=== PATIENT | female | born 1985 | race Caucasian/White ===

== ENCOUNTER 2017-05-24 19:05 | Emergency (ER) | payer OTHER ==
[~2017-05-24] VITALS: Ht 157.5 cm; Wt 47.6 kg
[~2017-05-24 19:05] MED LIST: ADVIL200 M2; ALEVE220 M1; AMOXICILLIN125 MG PO; AMOXIL500 M1 PO; ANEXSIA 5/325 M1 TA1 PO; ANTIVERT PO; ATARAX PO; ATIVAN0.5 M1 PO; AUGMENTIN400 MG DOB; BACTRIM DS TABL1 TA1 PO; BENADRYL25 M1 PO; BIRTH CONTROL PILL PO; CELEXA; CELEXA PO; FAMOTIDINE PO; FIORICET1 TAB PO; FLEXERIL PO; FLEXERIL10 MG PO; GUAIFENESIN400 M1 PO; HYDROCORTISONE30 G2 EXT; HYDROXYZINE HCL25 M1 PO; IBUPROFEN; IRON1 TA1 PO; IRON325 ( 651 PO; LIDOCAINE HC20 MG/M1 MM; LORTAB 5/500 TA1 TA1 PO; METRONIDAZOLE PO; NAPROSYN500 MG PO; NAPROXEN PO; NO MEDICATIONS; NORCO1 TAB 10/3 PO; PEN-VEE K PO; PEPCID PO; PHENERGAN25 MG PO; PREDNISONE; PREDNISONE PO; PREDNISONE10 MG PO; PYRIDIUM100 MG PO; ROBAXIN500 MG PO; SUDAFED30 M1 PO; ULTRACET TABLET1 TAB PO; ULTRAM PO; VOLTAREN75 MG PO; ZOFRAN ODT4 MG/UDTAB PO; ZYRTEC10 M2 PO
[2017-05-24] MEDS ORDERED: NO MEDICATIONS (19:37)
== END 2017-05-24 22:21 | disposition home or self-care (01) ==
LOC: SED 19:05
DX: B35.4 Tinea corporis (principal); F17.210 Nicotine dependence, cigarettes, uncomplicated; Z98.51 Tubal ligation status; Z88.5 Allergy status to narcotic agent
CPT/HCPCS: 99282

== ENCOUNTER 2017-06-16 09:13 | Emergency (ER) | payer SELFPAY ==
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
[2017-06-16] MEDS ORDERED: METHOCARBAMOL PO (09:21)
[2017-06-16] MEDS ORDERED: METHYLPREDNISOLONE PO (09:22)
[2017-06-16] MEDS ORDERED: TRAMADOL PO (09:22)
[2017-06-16] MEDS ORDERED: IBUPROFEN PO (09:22)
[2017-06-16] MEDS ORDERED: HYDROXYZINE PO (09:23)
== END 2017-06-16 10:59 | disposition home or self-care (01) ==
LOC: SED 09:13
DX: S23.41XA Sprain of ribs, initial encounter (principal); F17.210 Nicotine dependence, cigarettes, uncomplicated; V49.00XA Driver injured in collision with unspecified motor vehicles in nontraffic accident, initial encounter; Y92.410 Unspecified street and highway as the place of occurrence of the external cause; Z88.8 Allergy status to other drugs, medicaments and biological substances
CPT/HCPCS: 71020; 99283

== ENCOUNTER 2017-06-26 18:49 | Emergency (ER) | payer OTHER ==
--- NOTE | ~2017-06-26 | EKG ---
PATIENT: ERNIE WESTBROOK UNIT #: [id number] Ventricular Rate: 80 BPM Atrial Rate: 80 BPM P-R Interval: 150 ms QRS Duration: 82 ms Q-T Interval: 378 ms QTC Calculation(Bezet): 435 ms P Smiley: 64 degrees Calculated R Smiley: 34 degrees Calculated T Smiley: 52 degrees Diagnosis Line: Normal sinus rhythm Diagnosis Line: Possible Left atrial enlargement Diagnosis Line: Borderline ECG Diagnosis Line: No previous ECGs available Diagnosis Line: Confirmed by MIGUEL ANGEL PANDEY MD ([id number]) on Diagnosis Line: 06/30/2017 10:40:50 AM INTERPRETING MD: KATHERIN BARRETT
--- NOTE | ~2017-06-26 | CR63 ---
[facility]. [facility] A Service of [facility] RADIOLOGY TEXT RESULTS PATIENT: ERNIE WESTBROOK LOCATION: SED : 87 UNIT #: [id number] AGE: [address]: Steve Frank MD SEX: F ORDER DR: [id number] [place] [id number] E MR#: [id number] Acc #: [id number] NAME: ERNIE WESTBROOK : 1985 SEX: F STUDY DATE/TIME: 06/26/2017 19:45 UNIT: SED ROOM: STUDY DESCRIPTION: CR Chest 2 View Attending Physician: Steve Frank M.D. Ordering Physician: Steve Frank M.D. Primary Care Physician: Sarah Floyd Aprn MEDICAL IMAGING REPORT This report is preliminary unless electronic signature is present. EXAM Two views of the chest. COMPARISON 06/16/2017, November 17, 2014 INDICATION 32-year-old female with pleuritic chest pain and dyspnea for 2 weeks. FINDINGS Cardiomediastinal silhouette is within normal limits. No evidence of pleural effusion, focal airspace disease, or pneumothorax. IMPRESSION Normal exam. Dictated by... Thom Valentino M.D. THIS IS AN ELECTRONICALLY VERIFIED REPORT Thom Valentino M.D. at 07/02/2017 9:15 PM LYDIA/tori TD: 06/27/2017 01:24 JOB #: [id number] MEDICAL IMAGING REPORT Page 1 of 1
[~2017-06-26 18:49] MED LIST changes: +HYDROXYZINE PO; +IBUPROFEN PO; +METHOCARBAMOL PO; +METHYLPREDNISOLONE PO; +TRAMADOL PO
== END 2017-06-26 20:48 | disposition home or self-care (01) ==
LOC: SED 18:49
DX: R07.89 Other chest pain (principal); F17.200 Nicotine dependence, unspecified, uncomplicated; Z88.5 Allergy status to narcotic agent; Z79.899 Other long term (current) drug therapy
CPT/HCPCS: 71020; 93005; 96372; 99285; J1885

== ENCOUNTER 2017-07-10 18:58 | Emergency (ER) | payer OTHER ==
[~2017-07-10] VITALS: Ht 157.5 cm; Wt 49.9 kg
--- NOTE | ~2017-07-10 | US85 ---
[facility]. [facility] A Service [facility] RADIOLOGY TEXT RESULTS PATIENT: ERNIE WESTBROOK LOCATION: SED : 89 UNIT #: [id number] AGE: [address]: Arvind Kwong SEX: F ORDER DR: [id number] [place] [id number] E MR#: [id number] Acc #: [id number] NAME: ERNIE WESTBROOK. : 1985 SEX: F STUDY DATE/TIME: 07/10/2017 20:54 UNIT: SED ROOM: STUDY DESCRIPTION: [facility] [employer] [facility] Attending Physician: Arvind Kwong M.D. Ordering Physician: Physician Non-Staff Primary Care Physician: Sarah Floyd Aprn MEDICAL IMAGING REPORT This report is preliminary unless electronic signature is present. EXAM Right lower extremity venous duplex 07/10/2017 HISTORY Right lower extremity pain and edema beginning this morning. Evaluate for deep vein thrombosis. TECHNIQUE Venous ultrasound examination of the right lower extremity was performed using grayscale, spectral Doppler and color flow Doppler imaging. FINDINGS The examination is negative. There is no evidence of right lower extremity deep venous thrombus from the groin to the lower calf. Visualized greater saphenous vein is also patent. IMPRESSION Negative examination. No evidence of right lower extremity deep venous thrombosis. Dictated by... Ilia Brito M.D. THIS IS AN ELECTRONICALLY VERIFIED REPORT Ilia Brito M.D. at 07/11/2017 2:21 PM KRT/lb TD: 07/11/2017 12:50 JOB #: [id number] MEDICAL IMAGING REPORT [facility] A Service [facility] RADIOLOGY TEXT RESULTS PATIENT: ERNIE WESTBROOK LOCATION: SED : [birth year] UNIT #: [id number] AGE: [address]: Arvind Kwong SEX: F ORDER DR: Page 1 of 1
== END 2017-07-10 22:02 | disposition home or self-care (01) ==
LOC: SED 18:58
DX: L03.115 Cellulitis of right lower limb (principal); Z88.5 Allergy status to narcotic agent
CPT/HCPCS: 93971; 99284